=== PATIENT | female | born 1945 | race Hispanic/Latino ===

== ENCOUNTER 2019-12-03 12:18 | Observation (INO) | payer MEDICARE, OTHER ==
[~2019-12-03] VITALS: Ht 154.9 cm; Wt 66.7 kg
[2019-12-03] MEDS ORDERED: LOSARTAN POTASS25 MG PO (12:56)
[2019-12-03] MEDS ORDERED: WARFARIN SODIU2.5 MG PO (12:56)
--- NOTE | 2019-12-03 13:03 | NUR ---
pt denies fever, cough, headache, chills, no other s/s covid.
[2019-12-03] MEDS ORDERED: LETROZOLE2.5 MG (13:06)
[2019-12-03] MEDS ORDERED: METHIMAZOLE5 MG PO (13:06)
[2019-12-03] MEDS ORDERED: FAMOTIDINE20 MG PO (13:06)
[2019-12-03] MEDS ORDERED: AMIODARONE HCL200 MG (13:06)
[2019-12-03] MEDS ORDERED: METOPROLOL SUCC25 MG (13:06)
[2019-12-03] MEDS ORDERED: CLONIDINE HCL 0.2 MG TAB PO ONE (13:15)
--- NOTE | 2019-12-03 13:18 | Diagnostic Imaging Report ---
EXAM: CXR 1 VIEW - [facility] DATE: 12/03/2019 1:04 PM INDICATION: Shortness of breath COMPARISON: None FINDINGS: The trachea is midline. The lungs are symmetrically expanded without evidence for large focal consolidation, pneumothorax, or significant pleural effusion. The cardiomediastinal silhouette and pulmonary vasculature are within normal limits. Surgical clips noted projecting over the left hemithorax. No acute osseous abnormality is identified IMPRESSION: No acute cardiopulmonary process identified. Signed by: Dr. Emery Hernandez MD on 12/03/2019 1:15 PM
[2019-12-03] MEDS ORDERED: CLONIDINE HCL 0.1 MG TAB ONE (13:19)
--- NOTE | 2019-12-03 13:50 | Emergency Department Note ---
History of Present Illnes History of Present Illness Chief Complaint: Chest Pain History of Present Illness This is a 73 year old femaleChief Complaint Comment Pt arrived to the E R with c/o Left sided CP that radiates to shoulder, arm, up neck and jaw that started Sunday. Pt describes CP as a constant ache. Pt reports dizziness states feeling off balance. Historian: Patient Arrival Mode: Car Onset (how long ago): day(s) (1) Location: left side Quality: sharp Radiation: Reports extremity (left) Severity: moderate Onset quality: gradual Duration (how long): day(s) (1) Timing of current episode: constant Progression: waxing and waning Chronicity: new Context: Denies recent illness, Denies recent surgery, Denies recent immobilization, Denies recent travel, Denies trauma/injury, Denies new medications, Denies hx of DVT/PE, Denies non-compliance w/ medications, Denies other Relieving factors: none Exacerbating factors: none Associated symptoms: Reports denies other symptoms Treatments prior to arrival: none Past Medical/Family History Physician Review I have reviewed the patient's past medical and family history. Any updates have been documented here. Past Medical History Recent Fever: Yes Clinical Suspicion of Infectio: No New/Unexplained Change in Ment: No Past Medical History: Hypertension, Diabetes, A-Fib, Cancer, Hyperlipedemia Other Medical History: Left breast cancer Hyperthyroidism Past Surgical History: Lumpectomy Other Surgery: Left breast Social History Smoking Cessation: Never Smoker Alcohol Use: Occasional Any Illegal Drug Use: No TB Exposure/Symptoms: No Physically hurt or threatened: No Other Last Tetanus: UTD Any Pre-Existing Lines (PICC,: No Is patient up to date on immun: Yes Last Flu: UTD Last Pneumovax: UTD Review of Systems Review of Systems Constitutional: Reports no symptoms EENTM: Reports no symptoms Cardiovascular: Reports chest pain Respiratory: Reports no symptoms Gastrointestinal: Reports no symptoms Genitourinary: Reports no symptoms Musculoskeletal: Reports no symptoms Integumentary: Reports no symptoms Neurological: Reports no symptoms Psychological: Reports no symptoms Endocrine: Reports no symptoms Hematological/Lymphatic: Reports no symptoms Physical Exam Related Data Allergies: Coded Allergies: Penicillins (Verified Allergy, Unknown, 12/03/19) baclofen (Verified Allergy, Unknown, 12/03/19) iodine (Verified Allergy, Unknown, 12/03/19) Triage Vital Signs Vital Signs Date Time Temp Pulse Resp B/P (MAP) Pulse Ox O2 Delivery O2 Flow Rate FiO2 12/03/19 12:26 98.4 58 16 200/86 97 Vital signs reviewed: Yes Physical Exam CONSTITUTIONAL Constitutional: Present well-developed, Present well-nourished HENT HENT: Present normocephalic, Present atraumatic, Present oropharynx clear/moist, Present nose normal HENT L/R: Present left ext ear normal, Present right ext ear normal EYES Eyes: Reports PERRL, Reports conjunctivae normal NECK Neck: Present ROM normal PULMONARY Pulmonary: Present effort normal, Present breath sounds normal CARDIOVASCULAR Cardiovascular: Present regular rhythm, Present heart sounds normal, Present capillary refill normal, Present normal rate GASTROINTESTINAL Abdominal: Present soft, Present nontender, Present bowel sounds normal GENITOURINARY Genitourinary: Present exam deferred SKIN Skin: Present warm, Present dry MUSCULOSKELETAL Musculoskeletal: Present ROM normal NEUROLOGICAL Neurological: Present alert, Present oriented x 3, Present no gross motor or sensory deficits PSYCHOLOGICAL Psychological: Present mood/affect normal, Present judgement normal Results Laboratory Lab results reviewed: Yes Imaging Imaging results reviewed: Yes Procedures 12 Lead ECG Interpretation ECG Interpretation : ECG: ECG 1 [employer]: Interpreted by ED physician Date: Dec 03, 2019 Time: 12:34 Rhythm: sinus bradycardia Rate: normal QRS axis: normal ST segments normal: Yes T waves normal: Yes Assessment & Plan Medical Decision Making MDM chest pain covid Reassessment Reassessment time: 13:47 Reassessment better Assessment & Plan Final Impression: (1) Chest pain (2) Precordial pain (3) A-fib Depart Disposition: ADMITTED Last Vital Signs Date Time Temp Pulse Resp B/P (MAP) Pulse Ox O2 Delivery O2 Flow Rate FiO2 12/03/19 13:21 55 16 173/75 97 12/03/19 12:26 98.4 Home Meds Reported Medications Amiodarone Hcl (AMIODARONE HCL) 200 Mg Tablet, 100 DAILY 12/03/19 Famotidine (FAMOTIDINE) 20 Mg Tab, 20 MG PO BID, #30 TAB 12/03/19 Letrozole (LETROZOLE) 2.5 Mg Tablet, DAILY 12/03/19 Methimazole (METHIMAZOLE) 5 Mg Tablet, UD 12/03/19 Metoprolol Succinate (METOPROLOL SUCCINATE) 25 Mg Tab.er.24h, DAILY 12/03/19 Losartan Potassium (LOSARTAN POTASSIUM) 25 Mg Tablet, 25 MG PO DAILY 12/03/19 Warfarin Sodium (WARFARIN SODIUM) 2.5 Mg Tablet, 2.5 MG PO DAILY, #30 TAB 12/03/19 Medications in the ED Clonidine HCl 0.2 mg ONCE ONCE PO Last administered on 12/03/19at 13:21; Admin Dose 0.1 MG; Start 12/03/19 at 13:15; Stop 12/03/19 at 13:24; Status DC Clonidine HCl 0.[address] [facility] ONCE .ROUTE ; Start 12/03/19 at 13:19; Stop 12/03/19 at 13:14; Status DC MOOK REDMOND MD Dec 03, 2019 13:49
[2019-12-03] MEDS ORDERED: ASPIRIN 325 MG TAB PO ONE (14:00)
[2019-12-03] MEDS ORDERED: ASPIRIN 81 MG CHEW TAB PO ONE (14:30)
[2019-12-03] MEDS ORDERED: ONDANSETRON HCL INJ 2MG/ML 2ML 2 MG/ML VIAL IV PRN (14:30)
[2019-12-03] MEDS ORDERED: METHIMAZOLE 5 MG TAB PO SCH (15:00)
--- NOTE | 2019-12-03 15:04 | NUR ---
called [facility] for [place] [facility]
[2019-12-03] MEDS ORDERED: ASPIRIN 325 MG TAB ONE (15:43)
[2019-12-03] MEDS: FAMOTIDINE 20 MG TAB PO SCH (16:30)
--- NOTE | 2019-12-03 16:33 | NUR ---
report to ems
--- NOTE | 2019-12-03 16:45 | NUR ---
RECEIVED TO RM IN STABLE CONDITION,AAOX3 NO DISTRESS NOTED, UPDATED ON POC VOICED UNDERSTANDING, DENIES CHEST PAIN AT THIS TIME, ORIENTED TO RM, NO OTHER CO VOICED CALL LIGHT IN REACH WILL CONTINUE TO MONITOR
[2019-12-03 17:49] LABS: INR 1.74; PROTHROMBIN TIME 21.6 seconds (11.9-14.5)
[2019-12-03 17:57] VITALS: BP 147/75
[2019-12-03 20:00] VITALS: BP 151/63
--- NOTE | 2019-12-03 20:03 | Consultation ---
DATE OF CONSULTATION: 12/03/2019 Cardiology Consultation CONSULTING PHYSICIAN: Lenard Munoz MD, Interventional Cardiology. REASON FOR CONSULTATION: Chest pain. HISTORY OF PRESENT ILLNESS: Pleasant 73-year-old woman with a history of hypertension, paroxysmal atrial fibrillation, presents with complaints of chest discomfort, left-sided radiating to shoulder, left upper extremity and neck, worse with movement of left upper extremity and rotation of neck and with flexion of the back. She denies any exertional component to symptoms. She denies any respiratory worsening or worsening with cough. She does complain of some cough and dysphagia. REVIEW OF SYSTEMS: A 12-system review is negative except for as noted above. PAST MEDICAL HISTORY: As per HPI including hypertension, atrial fibrillation. SOCIAL HISTORY: Denies smoking, alcohol, or drugs. FAMILY HISTORY: Noncontributory. MEDICATIONS: Home medications reviewed. ALLERGIES: REVIEWED PER EMR. PHYSICAL EXAMINATION: VITAL SIGNS: Afebrile, heart rate 88, blood pressure 140/80, respiratory rate 18, O2 saturation 98% on room air. GENERAL: In no acute distress, alert. NECK: No JVD. CHEST: Clear to auscultation. CARDIOVASCULAR: Regular rate and rhythm. Normal S1 and S2. No S3. No S4. No murmurs, no rubs. ABDOMEN: Soft, nontender. Bowel sounds positive. EXTREMITIES: No edema. Warm extremities. CARDIOVASCULAR MEDICATIONS: Reviewed. STUDIES: Reviewed. Negative first troponin. Normal creatinine. Hemoglobin 14. EKG, sinus rhythm with poor R-wave progression in precordial leads. ASSESSMENT AND PLAN: 1. A 73-year-old woman presents with atypical chest discomfort with some musculoskeletal type features, has history of paroxysmal atrial fibrillation, currently in sinus rhythm. Had hypertensive urgency with systolic blood pressure 200s when evaluated in the freestanding ER, however, now with improving blood pressure reads. 2. Recommend trend cardiac enzymes to rule out AMI. Obtain echocardiogram. Keep on telemetry. Continue consider trial of muscle relaxants/analgesics to assess response in the setting of suspected musculoskeletal etiology. 3. Some cough with pills taking. Consider speech/swallow evaluation. Lenard Munoz MD AFV/MODL /[id number]
[2019-12-03 21:06] LABS: CREATINE KINASE 53 IU/L (29-168)
[2019-12-03] MEDS ORDERED: KETOROLAC TROMETHAMINE 30 MG/ML VIAL IV ONE (22:01)
[2019-12-04] VITALS (8 sets, daily range): BP systolic 121–159; BP diastolic 57–81
--- NOTE | 2019-12-04 04:40 | History and Physical ---
PCP: Dr. Jim Velez at [facility] CHIEF COMPLAINT: Chest pain radiating to her back and left shoulder. HISTORY OF PRESENT ILLNESS: This is a 73-year-old female with past medical history of hypertension, paroxysmal atrial fibrillation, high cholesterol, breast cancer and prediabetic, presented to the ER with complaints of chest pain that started about 3 days ago. She reports the pain was worsening, so presented to freestanding ER for further evaluation. She describes the chest pain as tight and pulling, radiating to her upper back and left shoulder going down her arm. She reports the pain is worsened with movement, no alleviating factors. She denies any fever, shortness of breath, dizziness, diaphoresis, change in LOC, blurred vision, or passing out. She reports port has noticed and that she is having difficulty swallowing her pills, reports cough when taking medications. No further complaints. First set of troponins are negative, we will admit under observation for further workup. PAST MEDICAL HISTORY: 1. Hypertension. 2. Paroxysmal atrial fibrillation. 3. High cholesterol. 4. Breast cancer. 5. Prediabetic. PAST SURGICAL HISTORY: She reports lumpectomy. FAMILY MEDICAL HISTORY: She reports grandmother had cancer. SOCIAL HISTORY: She denies any tobacco or illicit drug use. Reports drinks alcohol occasionally. ALLERGIES: PENICILLIN, BACLOFEN, AND IODINE. REVIEW OF SYSTEMS: Twelve systems reviewed and negative except as reported in HPI. PHYSICAL EXAMINATION: VITAL SIGNS: Temperature 97.5, pulse is 88, respirations 18, blood pressure 151/63, and pulse ox is 100% on room air. GENERAL: No acute distress. HEENT: Normocephalic and atraumatic. NECK: Supple. LUNGS: Decreased breath sounds. CARDIOVASCULAR: Regular rate and rhythm. GI: Soft and nontender. MUSCULOSKELETAL: Moves all extremities. Mild tenderness noted in the left shoulder with movement. NEUROLOGIC: Alert, awake, and oriented x3. PSYCH: Calm. LABORATORY DATA: Reviewed. Freestanding ER labs, which were unremarkable. Troponin 0.001, TSH 2.09, PT 21.6, INR 1.74. COVID PCR is pending. Chest x-ray, no acute cardiopulmonary process identified. IMPRESSION: 1. Chest pain, rule out acute coronary syndrome. Troponin x1 is negative, we will continue to trend troponins. She was given aspirin in the ER. We will resume her home medication and beta-blockers. Continue to monitor on tele and consult Cardiology. 2. Accelerated hypertension. Blood pressure upon arrival to the ER was 200/86, this have been the cause of her chest pain. She was given clonidine 0.2 mg and is improved. We will resume home dose of metoprolol and losartan. 3. Paroxysmal atrial fibrillation. Resume amiodarone. A 12-lead EKG shows sinus bradycardia. We will hold Coumadin for possible workup. 4. High cholesterol. On statin. 5. History of breast cancer. On remission. 6. Prediabetic. We will check hemoglobin A1c. 7. Deep vein thrombosis prophylaxis. SCDs. We will AC per Cardiology. PLAN: To continue trending troponins, echo pending, further recommendation per Cardiology. Dictated by FIFI Luna Tien Jefferson MD MY/SAPNAL /[id number]
[2019-12-04 05:34] LABS: BASOPHILS % 0.2 % (0.0-1.0); EOSINOPHILS # (AUTO) 0.1 (0.0-0.4); EOSINOPHILS % 1.7 % (0.0-6.0); HEMATOCRIT 42.5 % (34.2-44.1); HEMOGLOBIN 14.1 g/dL (12.0-16.0); LYMPHOCYTES # (AUTO) 1.4 (1.0-3.2); LYMPHOCYTES % 27.8 % (18.0-39.1); MEAN CORPUSCULAR HEMOGLOBIN 30.8 pg (28-32); MEAN CORPUSCULAR HGB CONC 33.2 g/dL (31-35); MEAN CORPUSCULAR VOLUME 92.8 fL (81-99); MONOCYTES # (AUTO) 0.5 (0.2-0.8); MONOCYTES % 9.7 % (4.4-11.3); NEUTROPHILS # (AUTO) 3.1 (2.1-6.9); NEUTROPHILS % 60.4 % (38.7-80.0); PLATELET COUNT 170 x10e3/uL (140-360); RED BLOOD COUNT 4.58 x10e6/uL (3.6-5.1); RED CELL DISTRIBUTION WIDTH 13.1 % (11.7-14.4)
[2019-12-04 05:43] LABS: INR 1.86; PROTHROMBIN TIME 22.8 seconds (11.9-14.5)
[2019-12-04 05:52] LABS: ANION GAP 10.9 mmol/L (8-16); BLOOD UREA NITROGEN 12 mg/dL (7-26); BUN/CREATININE RATIO 16 (6-25); CALCIUM 9.8 mg/dL (8.4-10.2); CARBON DIOXIDE 27 mmol/L (22-29); CHLORIDE 107 mmol/L (98-107); CREATININE, SERUM 0.77 mg/dL (0.57-1.11); EST GLOMERULAR FILTRATION RATE > 60 ML/MIN (60-); GLUCOSE 89 mg/dL (74-118); POTASSIUM 3.9 mmol/L (3.5-5.1); SODIUM 141 mmol/L (136-145)
--- NOTE | 2019-12-04 07:00 | NUR ---
BEDSIDE SHIFT REPORT RECEIVED PT IN STABLE CONDITION DENIES CHEST PAIN AT THIS TIME, R AC 20G C/D/I, NO OTHER CO VOCIED CALL LIGHT IN REACH WILL CONTINUE OT MONITOR
--- NOTE | 2019-12-04 07:05 | NUR ---
REPORT GIVEN TO DAYSHIFT NURSE. AAOX3. NO SIGNS IV INFILTRATION. BED LOCKED AND IN LOW POSITION. CALL LIGHT WITHIN REACH.
[2019-12-04 07:17] LABS: CREATINE KINASE MB 0.8 ng/mL (0-5.0)
[2019-12-04 07:39] LABS: CHOL/HDL RATIO 4.3 (3.0-3.6)
[2019-12-04] MEDS: FAMOTIDINE 20 MG TAB PO SCH ×2 (08:25→17:04)
[2019-12-04] MEDS: ASPIRIN 325 MG TAB EC PO SCH (08:26)
[2019-12-04] MEDS: AMIODARONE HCL 200 MG TAB PO SCH (08:27)
[2019-12-04] MEDS: LOSARTAN POTASSIUM 25 MG TAB PO SCH (08:27)
[2019-12-04] MEDS ORDERED: METOPROLOL SUCCINATE 25 MG TAB XL PO SCH (09:00)
--- NOTE | 2019-12-04 14:45 | NUR ---
SPOKE WITH [facility] [employer] EDUCATION SPECIALIST FOR DR TREVIÑO RE: MBS NOT BEING DONE TODAY, NO NEW ORDERS AT THIS TIME, ROGE SPOKE WITH FANI FROM RADIOLOGY RE: EMETERIO
[2019-12-04] MEDS ORDERED: WARFARIN SOD 2.5 MG TAB PO SCH ×2 (17:00)
--- NOTE | 2019-12-04 19:11 | NUR ---
report given to oncoming rn, pt in stable condition, denies pain at this time, call light in reach will continue ot monitor
[2019-12-04] MEDS ORDERED: ATORVASTATIN 20 MG TAB PO SCH (21:00)
--- NOTE | 2019-12-04 21:51 | Progress Note ---
DATE: 12/04/2019 Cardiology Progress Note SUBJECTIVE: Tanika denies any chest pain or shortness of breath. She was having some complaints of discomfort swallowing pills and a modified barium swallow has been ordered. OBJECTIVE: VITAL SIGNS: Temperature 97.8, heart rate 58, blood pressure 159/81, respiratory rate 15, and O2 saturation 97%. BMI 27.7. GENERAL: In no acute distress. Alert. NECK: No JVD. CHEST: Clear to auscultation. CARDIOVASCULAR: Regular rate and rhythm. Normal S1 and S2. No S3. No S4. No murmurs. ABDOMEN: Soft. Bowel sounds positive. EXTREMITIES: No edema. Warm extremities. CARDIOVASCULAR MEDICATIONS: Reviewed. Aspirin 325 mg daily, losartan 25 mg daily, metoprolol succinate 25 mg daily, amiodarone 200 mg daily, and atorvastatin 20 mg at bedtime. STUDIES: Reviewed. Creatinine 0.7. Hemoglobin 14 and platelets 170. INR 1.86. ASSESSMENT AND PLAN: A 73-year-old woman presents with: 1. Atypical chest discomfort. 2. Dysphagia. 3. Paroxysmal atrial fibrillation. 4. Hypertension. 5. Dyslipidemia. RECOMMEND: 1. Continue current cardiovascular medications. Resume warfarin for target INR 2 to 3. 2. Cardiac enzymes ruled out AMI. Preserved left ventricular systolic function noted on echocardiogram. Outpatient stress test advised if MDS remarkable. MD NIDA Dorado/ALEJANDRO /[id number]
--- NOTE | 2019-12-04 21:56 | Progress Note ---
DATE: 12/04/2019 CONSULTANTS: Dr. Munoz with Cardiology. CHIEF COMPLAINT: Chest pain. SUBJECTIVE: The patient reports chest pain and left shoulder pain are improved, but reports still having choking and coughing when sleeping and eating crackers. Bedside swallowing eval per Speech Therapy this morning was negative, but the patient still complains of cough. She denies any shortness of breath, nausea, vomiting, abdominal pain, chest pain. PHYSICAL EXAMINATION: VITAL SIGNS: Temperature 98.6, pulse is 56, respirations 19, blood pressure 122/58, pulse ox is 97% on room air. GENERAL: No acute distress. HEENT: Normocephalic and atraumatic. NECK: Supple. LUNGS: Clear to auscultation. CARDIOVASCULAR: Regular rate and rhythm. GI: Soft and nontender. MUSCULOSKELETAL: Moves all extremities. NEUROLOGIC: Alert, awake, and oriented x3. PSYCH: Calm. LABORATORY DATA: WBC is 5.18, hemoglobin 14.1, hematocrit 42.5, platelet 170. Sodium 141, potassium 3.9, CO2 27, BUN is 12, creatinine 0.77. Hemoglobin A1c is 5.5, LDL is 132, HDL is 47. TSH is 2.09. INR is 1.86. COVID PCR is pending. IMPRESSION: 1. Chest pain, ruled out acute coronary syndrome. Troponin x3 is negative. Continue tele monitor, pending echo. Cardiology has been consulted. 2. Accelerated hypertension. Blood pressure is now improved. Resume metoprolol and losartan. 3. Paroxysmal atrial fibrillation. Resume amiodarone. A 12-lead EKG shows sinus bradycardia. Continue Coumadin for cerebrovascular accident prophylaxis. 4. High cholesterol, on statin. 5. History of breast CA. On remission. 6. Prediabetic. Hemoglobin A1c is 5.5. 7. Questionable aspiration. Bedside swallowing eval was negative, but the patient reports she is still waking up choking and coughing. May be reflux. A BS planned tomorrow. 8. Deep vein thrombosis prophylaxis. On Coumadin. PLAN: To continue current treatment, a BS tomorrow, anticipate discharge home tomorrow. Dictated by Adele Alegria, FIFI Tien Jefferson MD MY/MODL /[id number]
[2019-12-04] MEDS ORDERED: KETOROLAC TROMETHAMINE 30 MG/ML VIAL IV PRN (22:45)
[2019-12-05] VITALS: BP 127/69
[2019-12-05 04:00] VITALS: BP 128/61
[2019-12-05 05:27] LABS: INR 1.73; PROTHROMBIN TIME 21.5 seconds (11.9-14.5)
--- NOTE | 2019-12-05 07:09 | NUR ---
report given to day nurse. patient is resting comfortably in the bed. bed is in the lowest position and call light is within reach.
[2019-12-05 08:06] VITALS: BP 154/69
[2019-12-05] MEDS: FAMOTIDINE 20 MG TAB PO SCH (08:18)
[2019-12-05] MEDS: ASPIRIN 325 MG TAB EC PO SCH (08:19)
[2019-12-05] MEDS: AMIODARONE HCL 200 MG TAB PO SCH (08:20)
[2019-12-05] MEDS: LOSARTAN POTASSIUM 25 MG TAB PO SCH (08:21)
[2019-12-05 08:42] VITALS: BP 154/69
[2019-12-05 09:45] VITALS: BP 154/69
[2019-12-05 11:57] VITALS: BP 147/70
[2019-12-05] MEDS ORDERED: LIPITOR20 MG PO (14:14)
[2019-12-05] MEDS ORDERED: LOSARTAN POTASS25 MG PO (14:14)
[2019-12-05] MEDS ORDERED: PROTONIX40 MG PO (14:15)
--- NOTE | 2019-12-05 15:20 | Diagnostic Imaging Report ---
PROCEDURE: X-RAY MODIFIED BARIUM SWALLOW COMPARISON: None. INDICATION: Aspiration Radiation Details: Fluoroscopy time: 1.9 minutes Cumulative dose: 9.5 mGy DISCUSSION: Fluoroscopic examination was performed in conjunction with speech pathology during swallowing a variety of thin and thick liquid consistencies. Provided images demonstrate no laryngeal penetration or aspiration. CONCLUSION: Modified barium swallow demonstrating no laryngeal penetration or aspiration. Please refer to the speech pathology report for further details. Signed by: Polly Valencia MD on 12/05/2019 3:17 PM
--- NOTE | 2019-12-06 01:03 | Discharge Summary ---
PRIMARY CARE PHYSICIAN: Dr. Jim Velez at [facility]. FINAL DISCHARGE DIAGNOSES: 1. Chest pain, ruled out acute coronary syndrome. 2. Accelerated hypertension. 3. Paroxysmal atrial fibrillation. 4. High cholesterol. 5. History of breast cancer. 6. Reflux. 7. Prediabetic. CONSULTANTS: Dr. Caraballo with Cardiology. PROCEDURES: She had a barium swallowing test, which was negative for aspiration. HISTORY: Per HPI. HOSPITAL COURSE: This is a 73-year-old female with past medical history of hypertension, AFib, high cholesterol, and breast cancer, in remission, presented with complaints of chest pain, radiating to her left arm and back area. She also complained of waking up in the middle of the night with coughing and choking feelings. Cardiac enzymes were negative x3, Cardiology was consulted given her history. Chest x-ray was negative for cardiopulmonary process. Echo was done with EF of 65% to 70%. She was restarted on her medications. With symptoms more likely musculoskeletal, she was given Toradol, which improved her pain. She was also noted to have bradycardia, beta-anel was held. Advised to continue amiodarone and Coumadin for CVA prophylaxis. Speech evaluated her swallowing due to check for aspiration, barium swallowing test also negative for aspiration, but was given reflux precautions. She was started on Protonix and advised to follow up with her GI doctor for further evaluation. Today, she is feeling much better, no chest pain or arm pain. We will discharge home to follow up with her PCP and GI in 1 to 2 weeks. PHYSICAL EXAMINATION: VITAL SIGNS: Temperature is 97.6, pulse is 53, respirations 16, blood pressure 147/70, pulse ox is 100% on room air. GENERAL: No acute distress. HEENT: Normocephalic and atraumatic. LUNGS: Clear to auscultation. CARDIOVASCULAR: Bradycardia. GI: Soft and nontender. NEUROLOGIC: Alert, awake, and oriented x3. MUSCULOSKELETAL: Moves all extremities. No edema. CONDITION AT DISCHARGE: Improved and stable. DISCHARGE MEDICATIONS: See medication reconciliation list. She was given prescription for Lipitor and Protonix. She was advised to start taking metoprolol and increase her losartan dose to 50 mg p.o. daily. FOLLOWUP: Follow up with her PCP and licensing registration examiner next week. TIME SPENT: Total time of discharge is 33 minutes. Dictated by Adele Alegria, ANP MD FLO Ponce/MODL /[id number] cc: Jim Velez MD [facility]
== END 2019-12-05 15:20 | disposition home or self-care (01) ==
LOC: FSED 12:18 → ERHOLD 14:21 → MED/SURG 16:47
PROVIDERS: ADMIT Internal Medicine; ATTEND Internal Medicine
DX: R07.89 Other chest pain (principal); R07.2 Precordial pain; I48.0 Paroxysmal atrial fibrillation; R68.84 Jaw pain; I10 Essential (primary) hypertension; E11.9 Type 2 diabetes mellitus without complications; E78.5 Hyperlipidemia, unspecified; Z85.3 Personal history of malignant neoplasm of breast; R73.03 Prediabetes; E78.00 Pure hypercholesterolemia, unspecified; R13.10 Dysphagia, unspecified; R05 Cough; Z11.59 Encounter for screening for other viral diseases
CPT/HCPCS: 36415 ×3; 71045; 74230; 80048; 80053; 80061; 82550 ×2; 82553 ×2; 82948 ×3; 83036; 84436; 84443; 84479; 84484 ×2; 85025 ×2; 85610 ×3; 87635; 92526 ×2; 92610; 92611; 93005; 93306; 99284; G0378 ×3; J1885; J2405